=== PATIENT | female | born 1980 | race Caucasian/White ===

== ENCOUNTER 2017-11-26 16:36 | Emergency (ER) | payer SELFPAY ==
[~2017-11-26] VITALS: Ht 154.9 cm; Wt 90.7 kg
[2017-11-26 17:13] VITALS: BP 126/76
--- NOTE | 2017-11-26 18:00 | NUR ---
37F bib family with c/o fever and cough x 2 days. Her two daughters have been sick with similar symptoms. Pt denies any n/v/d or sob. Pt is aox4 with steady gait. RR are even and unlabored. Pt positioned to comfort, bed down. Pt positioned to comfort, bed down. nad. vss.
[2017-11-26 18:30] VITALS: BP 129/73
== END 2017-11-26 18:30 | disposition home or self-care (01) ==
LOC: MED 16:36
DX: B34.9 Viral infection, unspecified (principal)
CPT/HCPCS: 99283

== ENCOUNTER 2018-12-27 16:25 | Emergency (ER) | payer OTHER ==
[~2018-12-27] VITALS: Ht 160 cm; Wt 95.8 kg
[2018-12-27 17:10] VITALS: BP 117/68
--- NOTE | 2018-12-27 18:05 | NUR ---
PT WAITING IN LOBBY W/ VSS. NO NEW COMPLAINTS OR CHANGE IN CONDITION. WILL CONTINUE TO MONITOR.
--- NOTE | 2018-12-27 18:46 | NUR ---
PT AMBULATED TO ER BED 01
--- NOTE | 2018-12-27 19:05 | NUR ---
PT PRESENTS TO ED WITH SUPRAPUBIC PRESSURE AND THORACIC/UPPPER-LUMBAR PAIN X1 DAY. PT STATES BEING TREATED FOR UTI X1 WK AND TAKING AMOXICILLIN. NO PAIN/BURNING WITH URINATION. NO ABD PAIN. NO N/V/D. VSS. A&OX4. POSITINED IN BED FOR COMFORT. FAMILY AT BEDSIDE. ER AWARE. COTINUE TO MONITOR.
[2018-12-27 20:07] VITALS: BP 117/68
--- NOTE | 2018-12-27 20:07 | NUR ---
Patient discharged with v/s stable. Written and verbal after care instructions given and explained. Patient alert, oriented and verbalized understanding of instructions. Ambulatory with steady gait. All questions addressed prior to discharge. ID band removed. Patient advised to follow up with PMD. Rx of NITROFURANTOIN AND IBUPROFEN given. Patient educated on indication of medication including possible reaction and side effects. Opportunity to ask questions provided and answered.
== END 2018-12-27 20:07 | disposition home or self-care (01) ==
LOC: MED 16:25
DX: N39.0 Urinary tract infection, site not specified (principal); Z98.890 Other specified postprocedural states
CPT/HCPCS: 81002; 81025; 87086; 99283

== ENCOUNTER 2019-12-08 14:36 | Emergency (ER) | payer OTHER ==
[~2019-12-08] VITALS: Ht 154.9 cm; Wt 101.2 kg
[2019-12-08 15:04] VITALS: BP 115/56
--- NOTE | 2019-12-08 15:19 | NUR ---
PT AMBULATED TO ER BED 7
--- NOTE | 2019-12-08 15:25 | NUR ---
PA AT BEDSIDE
--- NOTE | 2019-12-08 15:26 | NUR ---
ADRIANNA AT BEDSIDE. PT WHEELED VIA WHEELCHAIR TO RADIOLOGY.
--- NOTE | 2019-12-08 15:40 | NUR ---
39Y/F PRESENTS TO ED C/O FLU-LIKE SX X 3 DAY. PT C/O SOB, FEVER ( DID NOT MEASURE), VOMIT, CHILLS, BROWN PRODUCTIVE COUGH, THROBBING [place]UR[place] 7/10, NON RADIATING. FAMILY MEMBER FROM FLU COMPLICATIONS LAST WEEK. OTHERS AT HOME + FOR FLU. DENIES CP. WHEEZES HEARD IN R MID LOBE. A&O X 4. MEDICAL HX- DENIES NKDA
[2019-12-08 16:24] VITALS: BP 123/64
--- NOTE | 2019-12-08 16:24 | NUR ---
PT INFORMED XRAY HAS NEGATIVE RESULT. PT HAS VIRAL SYNDROME
--- NOTE | 2019-12-08 16:24 | NUR ---
Patient discharged with v/s stable. Written and verbal after care instructions given and explained. Patient alert, oriented and verbalized understanding of instructions. Ambulatory with steady gait. All questions addressed prior to discharge. ID band removed. Patient advised to follow up with PMD. Rx of TAMIFLU, IBUPROFEN, AND PROMETHAZINE given. Patient educated on indication of medication including possible reaction and side effects. Opportunity to ask questions provided and answered.
== END 2019-12-08 16:24 | disposition home or self-care (01) ==
LOC: MED 14:36
DX: B34.9 Viral infection, unspecified (principal)
CPT/HCPCS: 71045; 99283

== ENCOUNTER 2021-03-23 13:33 | Emergency (ER) | payer OTHER ==
[~2021-03-23] VITALS: Ht 154.9 cm; Wt 92.5 kg
[2021-03-23 13:37] VITALS: BP 110/67
--- NOTE | 2021-03-23 13:39 | NUR ---
Patient ambulated to bed 6. RN evaluating the patient at bedside.
--- NOTE | 2021-03-23 13:45 | NUR ---
40 y/o F BIB self from home with c/c right hand pain. Patient presents A&Ox4, ambulatory and states this morning at 0800, she was cleaning/washing dishes and began experiencing pain. Patient states pain progressively worsen throughout the day; states right hand pain that radiates to the right forearm. Bruising noted on top of right hand and to right mid forearm. Patient reports pain 8/10, aching/cramping/constant pain that worsens with movement. Patient reports history of carpal tunnel, however, states this feels different. Patient denies any recent trauma or injury to right arm/hand. Pt placed into position of comfort. Bed locked in lowest position, side rails x 1. PMH: Pre-DM, carpal tunnel Meds: Denies Sx: abdominoplasty (10 yrs ago), cholecystectomy NKA
--- NOTE | 2021-03-23 13:49 | NUR ---
Patient being evaluated by Dr. Díaz at bedside.
--- NOTE | 2021-03-23 14:04 | NUR ---
X-ray at bedside.
[2021-03-23] MEDS ORDERED: NAPR-54 PO (14:18)
[2021-03-23] MEDS: KETOROLAC 30 MG/ML VIAL IM ONE (14:21)
--- NOTE | 2021-03-23 14:21 | NUR ---
Patient is resting with both eyes closed in semi-fowlers position. Respirations even/unlabored; no distress noted. Bed locked in lowest position, side rails x 1.
--- NOTE | 2021-03-23 14:24 | NUR ---
Dr. Díaz is reevaluating patient at bedside.
--- NOTE | 2021-03-23 14:24 | NUR ---
EMT at bedside for splint application
--- NOTE | 2021-03-23 14:30 | NUR ---
Patient states positive relief after medication. Rates pain 6/10.
[2021-03-23 14:32] VITALS: BP 110/67
== END 2021-03-23 14:32 | disposition home or self-care (01) ==
LOC: MED 13:33
DX: M67.431 Ganglion, right wrist (principal)
CPT/HCPCS: 29125; 73130; 96372; 99283; J1885

== ENCOUNTER 2022-05-13 13:21 | Emergency (ER) | payer OTHER ==
[~2022-05-13] VITALS: Ht 157.5 cm; Wt 104.8 kg
[~2022-05-13 13:21] MED LIST: NAPR-54 PO
[2022-05-13 13:29] VITALS: BP 119/60
[2022-05-13] MEDS ORDERED: CEPH-588 PO (16:02)
[2022-05-13 16:09] VITALS: BP 124/71
== END 2022-05-13 16:09 | disposition home or self-care (01) ==
LOC: MED 13:21
DX: N39.0 Urinary tract infection, site not specified (principal)
CPT/HCPCS: 81002; 81025; 99283